=== PATIENT | male | born 1980 | race African-American/Black ===

== ENCOUNTER 2016-05-11 17:36 | Emergency (ER) | payer SELFPAY | END 2016-05-11 19:12 | disposition home or self-care (01) | LOC: ER 17:36 | DX: S40.012A Contusion of left shoulder, initial encounter (principal); W00.0XXA Fall on same level due to ice and snow, initial encounter; Y92.009 Unspecified place in unspecified non-institutional (private) residence as the place of occurrence of the external cause; F17.210 Nicotine dependence, cigarettes, uncomplicated ==